=== PATIENT | male | born 1970 | race Caucasian/White ===

== ENCOUNTER 2017-02-28 14:46 | Emergency (ER) | payer SELFPAY ==
[2017-02-28 14:54] VITALS: O2SAT 95
[2017-02-28] MEDS ORDERED: PROPARACAINE 0.5% 15 ML OPHT DROP OP ONE (14:57)
--- NOTE | 2017-02-28 15:41 | EDPHY ---
H & P Time Seen by Provider: 02/28/17 14:58 HPI/ROS: HPI Right eye pain. 46-year-old male by private vehicle. This patient was grinding and cutting plastic last night without safety glasses. He thinks that a piece of plastic broke off while he was cutting it and struck him in the right eye. He complains of redness to the right eye, continued tearing and irritation. He denies any significant change in his vision. No headache. He does not wear contact lenses. ROS: Constitutional: No fever, no chills. No weakness. Eyes: No discharge. No changes in vision. As above. Musculoskeletal: No neck pain. Skin: No rashes. Neurological: No headache. Past medical history: Diverticulitis, hernia repair. Social history: No alcohol. Nonsmoker. Here by himself. Physical Exam: General Appearance: Alert, no distress. This patient is responding to questions appropriately and in full sentences. This patient appears well- hydrated and well-nourished. Eyes: Visual acuities are 20/30 bilaterally without correction. Pupils equal and round at 3-2 mm bilaterally. No lid edema, erythema or injection noted left eye. Right eye exam significant for mild lid edema and erythema. Scleral erythema noted as well. García lamp exam with fluorescein staining; no Kelsea's sign, small, approximately 2 mm corneal abrasion 2:00 position mid cornea, no ulceration or other abnormality. Slit-lamp exam; no hypopyon, no hyphema, anterior chamber is deep and clear, no cell/flare. The upper and lower lids were everted with no gross evidence of foreign body. The upper lid had a small 1 mm abrasion to the mucosa mid medial aspect of the upper lid. Neurological: Motor sensory function is grossly intact. Cranial nerves are normal. Gait is normal. Skin: Warm and dry, no rashes. Musculoskeletal: Neck is supple and nontender. Extremities are symmetrical. All joints range without pain or impingement. Psychiatric: No agitation. No depression. Database: EKG: Imaging: Procedures: Emergency department course: After above examination, diagnosis of corneal abrasion was discussed. He was started on ofloxacin ophthalmic drops in the emergency department. We contacted the office of who is the on-call business owner/engineer. We will have him seen tomorrow in the office for follow-up. The patient is in agreement with this plan. Ibuprofen dosing was discussed. Return to emergency department precautions reviewed thoroughly. All of his questions were answered. He was discharged in good condition. Differential Diagnosis: The differential diagnosis on this patient includes but is not limited to corneal abrasion. Retained eyelid or ocular foreign body, corneal ulceration, iritis, keratitis, endophthalmitis, ruptured globe, angle closure glaucoma unlikely. This represents a partial list of diagnoses considered. These considerations are based on history, physical exam, past history, reassessment and diagnostic testing. Smoking Status: Current every day smoker Constitutional: Initial Vital Signs Temperature (C) 37 C 02/28/17 14:52 Heart Rate 78 02/28/17 14:52 Respiratory Rate 16 02/28/17 14:52 Blood Pressure 142/97 H 02/28/17 14:52 O2 Sat (%) 95 02/28/17 14:52 O2 Delivery Mode Room Air Allergies/Adverse Reactions: No Known Allergies Allergy (Verified 02/28/17 14:54) Home Medications: Medication Instructions Recorded NK [No Known Home Meds] 02/28/17 Medical Decision Making - Data Points Medications Given: Discontinued Medications Proparacaine HCl (Alcaine 0.5%) 2 drops OP EDNOW ONE Stop: 02/28/17 14:58 Last Admin: 02/28/17 15:41 Dose: 2 drops Departure - Departure Disposition: Home, Routine, Self-Care Clinical Impression: Corneal abrasion, right Condition: Good Instructions: Corneal Abrasion (ED) Additional Instructions: Read and follow provided instructions. Follow-up with business owner/engineer, as discussed, tomorrow for re-evaluation. It is important you do this. Call the office of Dr. Chris this afternoon for appointment time. Take medication as prescribed. Ofloxacin ophthalmic drops: 1- 2 drops to the right eye every 2-4 hours while awake on days 1 and 2, then 1-2 drops every 6 hr or 4 times daily on days 3 through 7 unless otherwise directed by business owner/engineer. Return to the emergency department for worsening pain, fever, decreased vision or other serious concerns. Ibuprofen dosin mg every 6 hr with meals as needed for pain for the next 3 days. Referrals: Rita Chris MD [Medical Doctor] - As per Instructions
[2017-02-28] MEDS ORDERED: OFLOXACIN 0.3% SOLN PREPACK OPHT.BTL TAKEHOME ONE (15:44)
[2017-02-28 16:42] VITALS: BP 138/69; PULSE 75; RESP 18; TEMP 98.2
[2017-02-28] MEDS ORDERED: OFLOXACIN 0.3% 5ML OPHT DROPS RTEYE SCH (18:00)
== END 2017-02-28 16:04 | disposition home or self-care (01) ==
LOC: CED 14:46
DX: S05.01XA Injury of conjunctiva and corneal abrasion without foreign body, right eye, initial encounter (principal); F17.200 Nicotine dependence, unspecified, uncomplicated; W22.8XXA Striking against or struck by other objects, initial encounter